=== PATIENT | male | born 1995 | race Caucasian/White ===

== ENCOUNTER 2021-11-14 02:03 | Emergency (ER) | payer OTHER ==
[~2021-11-14] VITALS: Ht 188 cm; Wt 70.3 kg
--- NOTE | 2021-11-14 02:36 | NUR ---
Dr. Martínez at bedside for MSE.
[2021-11-14] MEDS ORDERED: LORAZEPAM 2 MG/1 ML VIAL ONE (02:57)
[2021-11-14] MEDS ORDERED: IV NORMAL SALINE 1000 ML BAG IV ONE (03:00)
[2021-11-14] MEDS ORDERED: LORAZEPAM 2 MG/1 ML VIAL IV ONE (03:00)
[2021-11-14 03:04] LABS: HEMATOCRIT 42.6 % (36.7-47.1); MEAN CORPUSCULAR HEMOGLOBIN 31.4 uug (23.8-33.4); MEAN CORPUSCULAR VOLUME 89.1 fL (73.0-96.2); PLATELET COUNT (AUTO) 206 K/uL (152-348)
--- NOTE | 2021-11-14 03:25 | NUR ---
Xray at bedside.
[2021-11-14 03:31] LABS: CARBON DIOXIDE 25 mmol/L (21-32); CHLORIDE 106 mmol/L (98-107); GLUCOSE 105 mg/dL (74-106); POTASSIUM 3.6 mmol/L (3.5-5.1); UREA NITROGEN, BLOOD 16 mg/dL (7-18)
[2021-11-14 03:35] LABS: ETHANOL < 3 MG/DL (0-0)
[2021-11-14 03:43] LABS: THYROID STIMULATING HORMONE 4.277 mIU/mL (0.358-3.740)
[2021-11-14 03:46] LABS: ALANINE AMINOTRANSFERASE 31 U/L (16-63); ALKALINE PHOSPHATASE 71 U/L (50-136); ASPARTATE AMINOTRANSFERASE 16 U/L (15-37); BILIRUBIN,DIRECT 0.1 mg/dL (0.0-0.2); BILIRUBIN,TOTAL 0.7 mg/dL (0.2-1.0); TOTAL PROTEIN, SERUM 7.7 g/dL (6.4-8.2)
--- NOTE | 2021-11-14 03:48 | NUR ---
Pt provided urine sample, sent to lab.
[2021-11-14 04:02] LABS: *BILIRUBIN,URIN NEGATIVE (NEGATIVE); *BLOOD, URINE 1+ (NEGATIVE); *CLARITY,URINE CLEAR (CLEAR); *KETONES,URINE NEGATIVE (NEGATIVE); *UROBILINOGEN,URINE 0.2 E.U./dl (NORMAL); LEUKOCYTE ESTERASE ,URINE NEGATIVE (NEGATIVE); NITRITE, URINE NEGATIVE (NEGATIVE); PH,URINE 7.5 (5.0-8.0); UGLUCOSE NEGATIVE (NEGATIVE)
[2021-11-14 04:05] LABS: *COLOR,URINE LIGHT YELLOW (YELLOW)
[2021-11-14 04:13] LABS: *AMPHETAMINE, URINE NEGATIVE (NEGATIVE); *CANNABINOID, URINE NEGATIVE (NEGATIVE); *COCCAINE, URINE NEGATIVE (NEGATIVE); *OPIATE, URINE NEGATIVE (NEGATIVE); *PHENCYCLIDINE SCREEN,URINE NEGATIVE (NEGATIVE)
--- NOTE | 2021-11-14 05:36 | NUR ---
Patient discharged to home in stable condition. Written and verbal after care instructions given. Patient verbalizes understanding of instructions. Stressed follow up or return to ER for worsening s/s. Patient out of ER with steady gait, no acute signs of distress, VSS, all belongings taken, provided with copies of lab and xray results, IV site discontinued.
[2021-11-14 05:37] VITALS: BP 122/69
[2021-11-14 10:59] LABS: BACTERIA,URINE FEW /HPF (NONE SEEN); RBC,URINE 0-3 /HPF (0-3); SQUAMOUS EPITHELIAL CELL,UR FEW /HPF (NONE SEEN); WBC,URINE 0-3 /HPF (0-3)
== END 2021-11-14 05:37 | disposition home or self-care (01) ==
LOC: ER 02:07
DX: R00.2 Palpitations (principal); F41.9 Anxiety disorder, unspecified; R94.31 Abnormal electrocardiogram [ECG] [EKG]
CPT/HCPCS: 36415; 71045; 80048; 80076; 80307; 80320; 81001; 84443; 85025; 85651; 93005; 96361; 96374; 99285; J2060; J7040; A4663; G0480